=== PATIENT | female | born 1955 | race Caucasian/White ===

== ENCOUNTER → 2017-02-27 | Day surgery (SDC) | payer OTHER ==
[~2017-02-27] MED LIST: BUPIVACAINE/EPINEPHRINE 0.5% PF 30 ML VIAL ONE; KETOROLAC TROMETHAMINE 30 MG/ML (IVP) VIAL IV PUSH ONE; LACTATED RINGER'S 1000 ML INJ 1,000 ML ONE; MEPERIDINE HCL 25 MG/ML VIAL ONE; MIDAZOLAM HCL 2 MG/2 ML VIAL ONE; MORPHINE SULFATE 4 MG/ML INJ ONE; ONDANSETRON HCL 4 MG/2 ML VIAL IV PUSH ONE; PROPOFOL 200 MG/20 ML AMP IV ONE; ceFAZolin 2 GM PREMIX 50 ML ONE; ceFAZolin INJ 1,000 MG VIAL ONE; oxyCODONE/ACETAMINOPHEN 5 MG/325 MG TAB ONE
--- NOTE | 2017-03-01 11:15 | MP ---
cc: ELIGIO MONTANA M.D. DATE OF SURGERY: 03/01/2017 PREOPERATIVE DIAGNOSIS: Left knee medial meniscus tear and lateral meniscus tear with posterior lateral tibial plateau fracture. POSTOPERATIVE DIAGNOSIS: Left knee medial meniscus tear and lateral meniscus tear with posterior lateral tibial plateau fracture. OPERATION: Left knee arthroscopic partial medial and partial lateral meniscectomy. ANESTHETIC: General. SURGEON: Eligio Montana MD. [employer] COUNTER ASSISTANT SURGEON: Staff. ESTIMATED BLOOD LOSS: Minimum. SPECIMEN: Fragment was discarded. COMPLICATIONS: Partial MCL strain. TOURNIQUET TIME: 23 minutes, 300 mmHg. INDICATIONS FOR PROCEDURE: Eileen Birmingham is a 61 year old female who sustained injury to her left knee which involved a lateral tibial plateau fracture and a medial meniscus tear. She has had persistent symptoms, more medially than laterally which is consistent with the MRI findings of the medial meniscus tear. The fracture of the plateau has had enough time the heal. She is now offered arthroscopic surgery for this condition. Risks, benefits thoroughly discussed in detail informed consent was obtained. PROCEDURE The patient brought the operating room. She was placed under general anesthetic. The left lower extremity draped prepped in usual sterile fashion. IV antibiotics given. Time-out completed. Marcaine injected inferolateral portal and for portal made. The knee insufflated with saline. Patellofemoral joint appeared normal, medial compartment showed unstable tear involving the posterior horn of medial meniscus involving primarily the undersurface but also 50% of the depth of meniscus. We used the medial based portal and valgus stress. We did have some bleeding from the fat pad we did use tourniquet with valgus stress. We had some partial opening of the medial compartment as consistent with a partial MCL strain this did give very good access to the complex tear involving the posterior horn of medial meniscus and partial medial meniscectomy was performed a combination of basket forceps and arthroscopic shaver. Follow up Picture photographed here in the ACL was visualized appeared normal lateral compartment showed unstable tear involving the anterior horn and mid body and posterior horn of the lateral meniscus and we proceeded with arthroscopic partial lateral meniscectomy using combination of basket forceps and arthroscopic shaver. There was some chondromalacia weightbearing portion of the medial femoral condyle as well. We did switch over switching stick to improve visualization access to the posterior horn and smoothed and contoured and then our final photograph is looking directly down on the original fracture site where there appears to be about 1 mm step-off but generally the cartilage appears intact. We switched back over to the lateral compartment did a repeat diagnostic arthroscopy. We did also note some scar tissue in the lateral compartment. No loose bodies. The scar tissue lateral compartment is consistent with the MRI findings of capsular injury. The arthroscopic equipment was removed. Marcaine was injected to close with Steri-Strips. Sterile dressing applied. Vlad wrap applied. Tourniquet was let down. The patient was awoken return recovery room in stable condition. MD MARIA E Dunne/kamini /9:50 AM /11:04 AM
== END | disposition home or self-care (01) ==
LOC: ESDC 07:11
PROVIDERS: ATTEND Orthopaedic Surgery Sports Medicine
DX: S83.232A Complex tear of medial meniscus, current injury, left knee, initial encounter (principal); S83.282A Other tear of lateral meniscus, current injury, left knee, initial encounter
CPT/HCPCS: 01400; 29880; J0690; J1885; J2175; J2250; J2270; J2405; J3010; J7120

== ENCOUNTER → 2018-04-27 | Outpatient (CLI) | payer OTHER ==
--- NOTE | 2018-04-30 10:13 | RADRPT ---
EXAM DATE: 04/28/2018 9:55 AM EDT AGE/SEX: 62 years / Female INDICATIONS: Evaluate patient for possible RIGHT renal biopsy and ablation procedure. HISTORY OF PRESENT ILLNESS: 62-year-old female with a solid enhancing right renal mass worrisome for a renal cell carcinoma. Biopsy with cryoablation is requested. No imaging findings to suggest metast atic disease or local regional disease. MEDICAL/SURGICAL HISTORY: COMPARISON: [facility], MR ABDOMEN W/ AND W/O CONTRAST, 04/15/2018. . SOCIAL HISTORY: Denies smoking and drinking. SMOKING HISTORY: Denies smoking. ALLERGIES: No known drug allergies MEDICATIONS: Hydrochlorothiazide Mirtazapine Propanolol PHYSICAL EXAM: CC 's full history and physical. IMAGING STUDIES: MRI of the abdomen 04/15/[address] 04/22/2018. There is a 2.0 x 1.8 x 1.7 cm enhancing mass invol ving the cortex of the midpole the right kidney. No involvement of the renal hilum. It is fairly clos e to the hepatic capsule. 5 mm of fat separates the capsule of the liver from the peripheral margin o f lesion. ASSESSMENT: 2 cm enhancing mass involving the right kidney with imaging characteristics suggestive of a renal beatrice l carcinoma. PLAN: CT-guided biopsy with cryoablation. TIME SPENT: 20 minutes Electronically signed by: Ej Vera MD 04/30/2018 10:11 AM EDT
== END ==
LOC: HRAD 13:51
PROVIDERS: ATTEND Urology
DX: N28.89 Other specified disorders of kidney and ureter (principal)

== ENCOUNTER 2018-05-07 06:19 | Day surgery (SDC) | payer OTHER ==
[~2018-05-07] VITALS: Ht 165.1 cm; Wt 107.0 kg
[2018-05-07] VITALS (7 sets, daily range): BP systolic 87–125; BP diastolic 53–68; PULSE 57–76; RESP 18–20; TEMP 98.4; O2SAT 91–94
[~2018-05-07 06:19] MED LIST changes: -BUPIVACAINE/EPINEPHRINE 0.5% PF 30 ML VIAL ONE; +CITA40TA4 PO; +CLON0.5T PO; +FISHCAP4 PO; +HYDR25TA5 PO; -KETOROLAC TROMETHAMINE 30 MG/ML (IVP) VIAL IV PUSH ONE; -LACTATED RINGER'S 1000 ML INJ 1,000 ML ONE; +LEVO50TA4 PO; -MEPERIDINE HCL 25 MG/ML VIAL ONE; +METF850T PO; -MIDAZOLAM HCL 2 MG/2 ML VIAL ONE; +MIRT45TA PO; -MORPHINE SULFATE 4 MG/ML INJ ONE; -ONDANSETRON HCL 4 MG/2 ML VIAL IV PUSH ONE; +PROP10TA6 PO; -PROPOFOL 200 MG/20 ML AMP IV ONE; +SIMV40TA PO; +TEMA30CA PO; +VICT18IN SQ; -ceFAZolin 2 GM PREMIX 50 ML ONE; -ceFAZolin INJ 1,000 MG VIAL ONE; -oxyCODONE/ACETAMINOPHEN 5 MG/325 MG TAB ONE
[2018-05-07] MEDS ORDERED: SODIUM CHLOR 0.9% 1000 ML IV SCH (07:15)
[2018-05-07] MEDS ORDERED: LIDOCAINE 1%/EPINEPHrine 1:100,000 SOLN 20 ML VIAL ONE (07:39)
[2018-05-07] MEDS ORDERED: fentaNYL CITRATE 250 MCG/5 ML AMP ONE (08:15)
[2018-05-07] MEDS ORDERED: MIDAZOLAM HCL 5 MG/5 ML VIAL ONE (08:16)
[2018-05-07] MEDS ORDERED: oxyCODONE/ACETAMINOPHEN 5 MG/325 MG TAB PO PRN (09:00)
--- NOTE | 2018-05-07 11:14 | RADRPT ---
EXAM DATE: 05/07/2018 11:09 AM EDT AGE/SEX: 62 years / Female INDICATIONS: Short of breath. CLINICAL DATA: This is the patient's initial encounter. Patient reports that signs and symptoms have been present for 1 day and indicates a pain score of 0/10. MEDICAL/SURGICAL HISTORY: None. None. [place] [facility] [place], 05/07/2018. . FINDINGS: A single frontal expiratory view of the chest was performed. The lungs are symmetrically aerated and clear. No evidence of pneumothorax. Mediastinal structures are in the midline. A single frontal ex piratory view of the chest was performed. The lungs are symmetrically aerated and clear. No evidenc e of pneumothorax. Mediastinal structures are in the midline. CONCLUSION: No evidence of pneumothorax status post right lung biopsy. Electronically signed by: Óscar Eastman MD 05/07/2018 11:12 AM EDT
--- NOTE | 2018-05-08 07:30 | RADRPT ---
EXAM DATE: 05/07/2018 10:43 AM EDT AGE/SEX: 62 years / Female INDICATIONS: Right lung mass. CLINICAL DATA: This is the patient's initial encounter. Patient reports that signs and symptoms have been present for 1 day and indicates a pain score of 0/10. MEDICAL/SURGICAL HISTORY: . renal mass Hysterectomy. COMPARISON: No prior exams available for comparison. SEDATION TIME (min): 30min BIOPSY SITE: Right lung 5mg midazolam (Versed) IV 250mcg fentanyl (Sublimaze) IV DEVICE(S): 20 gauge Temno core biopsy needle 11cm One core specimen(s) sent to the laboratory for pathologic evaluation. . . PROCEDURE: CT guided Right lung biopsy Prior to the procedure informed consent was obtained. Any appropriate prior imaging studies were rev iewed. Using automated exposure control and adjustment of the mA and/or kV according to patient size , radiation dose was kept as low as reasonably achievable to obtain optimal diagnostic quality images . DICOM format image data is available electronically for review and comparison. The site was prepped in a sterile fashion. Full sterile technique was used, including cap, mask, mitchell rile gloves and gown and a large sterile sheet. Hand hygiene and 2% chlorhexidine and/or betadine/al cohol prep was utilized per protocol for cutaneous antisepsis. The skin and subcutaneous tissues wer e infiltrated with local anesthetic solution. With CT guidance the previously identified target was localized. Biopsy was performed using the presc ribed needle as above. Adequate hemostasis was obtained with compression at the puncture site. Follow-up CT scan reveals no pneumothorax. Conscious sedation was performed with the prescribed dosages and duration as above in the presence of an independent trained radiology nurse to assist in the monitoring of the patient. EKG and oximetry remained stable throughout the procedure. The patient tolerated the procedure well and there were no complications. The patient was sent to Radiology Outpatient Unit in stable condition. FINDINGS: Successful CT-guided 20-gauge core biopsy of right lower lobe posterior pleural-based nodular density as described above. CONCLUSION: 1. Uncomplicated CT guided biopsy. Electronically signed by: Óscar Eastman MD 05/08/2018 7:29 AM EDT
== END 2018-05-07 13:00 | disposition home or self-care (01) ==
LOC: HRAD 06:19 → HRIP 06:19 → HRAD 13:00
PROVIDERS: ATTEND Internal Medicine Pulmonary Disease
DX: R91.8 Other nonspecific abnormal finding of lung field (principal); R06.02 Shortness of breath
CPT/HCPCS: 32405; 71045; 77012; 88305; 99152; 99153; J2250; J3010